=== PATIENT | male | born 1955 | race Caucasian/White ===

== ENCOUNTER 2016-10-30 07:53 | Inpatient (IN) | payer OTHER ==
[~2016-10-30] VITALS: Ht 180.3 cm; Wt 115.7 kg
[2016-10-30 08:31] LABS: UA SPECIFIC GRAVITY 1.015 (1.005-1.035); microscopic required? YES; urine erythrocyte 3+ (NEGATIVE)
[2016-10-30 08:32] LABS: BASOPHIL % 0.2 % (0-2); PLATELET COUNT 251 x10^3mcL (130-400); RED CELL DISTRIBUTION WIDTH 12.8 % (11.5-14.5)
[2016-10-30] MEDS ORDERED: GLUCOPHAGE XR500 MG PO (09:34)
[2016-10-30 10:04] LABS: POTASSIUM SERUM 4.6 mmol/L (3.5-5.1)
[2016-10-30 10:05] LABS: ALBUMIN 3.8 g/dL (3.4-5.0); BILIRUBIN TOTAL 0.32 mg/dL (0.20-1.00); CALCIUM 8.3 mg/dL (8.5-10.1); CARBON DIOXIDE 23.3 mmol/L (21-32); CREATININE SERUM 2.8 mg/dL (0.7-1.3); TOTAL PROTEIN, SERUM 7.4 g/dL (6.4-8.2)
[2016-10-30 10:32] LABS: CHOLESTEROL/HDL RATIO 4.1; MAGNESIUM 1.9 mg/dL (1.8-2.4); PHOSPHOROUS 2.1 mg/dL (2.5-4.9)
[2016-10-30 10:35] LABS: T3 TOTAL 0.92 ng/mL
[2016-10-30 10:54] LABS: FREE T4 1.13 ng/dL (0.76-1.46); FREE THYROXINE INDEX 2.8 ug/dL (1.4-4.5); T4(THYROXINE) 8.1 ug/dL (4.7-13.3)
[2016-10-30 11:26] VITALS: BP 126/93
[2016-10-30 11:34] VITALS: BP 126/93
[2016-10-30 15:54] LABS: AMPHETAMINE QUAL UR NONE DETECTED (NEG <=1000)
[2016-10-30 17:13] VITALS: BP 126/82
[2016-10-30 21:14] VITALS: BP 120/61
[2016-10-31 05:52] VITALS: BP 119/68
[2016-10-31 06:25] LABS: CALCIUM 7.9 mg/dL (8.5-10.1); CARBON DIOXIDE 22.6 mmol/L (21-32); CREATININE SERUM 3.2 mg/dL (0.7-1.3); MAGNESIUM 1.9 mg/dL (1.8-2.4); PHOSPHOROUS 3.7 mg/dL (2.5-4.9); POTASSIUM SERUM 5.1 mmol/L (3.5-5.1)
[2016-10-31 06:49] LABS: BASOPHIL % 0.3 % (0-2); PLATELET COUNT 226 x10^3mcL (130-400)
[2016-10-31 09:47] VITALS: BP 114/62
[2016-10-31 17:55] VITALS: BP 129/84
[2016-10-31 22:01] VITALS: BP 127/76
[2016-11-01 06:18] LABS: BASOPHIL % 0.2 % (0-2); CALCIUM 7.8 mg/dL (8.5-10.1); CARBON DIOXIDE 24.2 mmol/L (21-32); CREATININE SERUM 3.5 mg/dL (0.7-1.3); PLATELET COUNT 215 x10^3mcL (130-400); POTASSIUM SERUM 4.8 mmol/L (3.5-5.1); RED CELL DISTRIBUTION WIDTH 12.7 % (11.5-14.5)
[2016-11-01 06:55] VITALS: BP 113/81
[2016-11-01 09:17] VITALS: BP 124/80
[2016-11-01] MEDS ORDERED: COL100 PO (10:51)
[2016-11-01] MEDS ORDERED: PHARMASSURE VI500 MG PO (11:33)
[2016-11-01] MEDS ORDERED: NORCO1 TA1 PO (11:34)
[2016-11-01] MEDS ORDERED: GOOD SENSE OMEP20 MG PO (11:35)
[2016-11-01] MEDS ORDERED: MOT800 PO (11:35)
[2016-11-01] MEDS ORDERED: FLO4 PO (11:37)
[2016-11-01] MEDS ORDERED: COLACE100 MG PO (11:37)
[2016-11-01] MEDS ORDERED: FERROUS SULFAT325 M2 PO (11:43)
[2016-11-01 12:47] VITALS: BP 124/80
== END 2016-11-01 14:30 | disposition home or self-care (01) | DRG 683 ==
LOC: ED 07:53 → DU 09:19
PROVIDERS: Emergency Medicine; ADMIT Family Medicine
DX: N17.0 Acute kidney failure with tubular necrosis (principal); D68.69 Other thrombophilia; N13.2 Hydronephrosis with renal and ureteral calculous obstruction; E11.65 Type 2 diabetes mellitus with hyperglycemia; E03.9 Hypothyroidism, unspecified; K76.0 Fatty (change of) liver, not elsewhere classified; D35.01 Benign neoplasm of right adrenal gland; E78.5 Hyperlipidemia, unspecified; F43.9 Reaction to severe stress, unspecified; E11.22 Type 2 diabetes mellitus with diabetic chronic kidney disease; N18.9 Chronic kidney disease, unspecified; D64.9 Anemia, unspecified; R31.9 Hematuria, unspecified; E83.39 Other disorders of phosphorus metabolism; Z87.442 Personal history of urinary calculi; Z68.35 Body mass index [BMI] 35.0-35.9, adult; Z79.84 Long term (current) use of oral hypoglycemic drugs; Z90.49 Acquired absence of other specified parts of digestive tract
CPT/HCPCS: 82962; 83880; 84439; J1885; J2270; J2405; J7030; Q0092